=== PATIENT | female | born 1960 | race Caucasian/White ===

== ENCOUNTER 2019-09-22 13:12 | Day surgery (SDC) | payer MEDICAID ==
[~2019-09-22] VITALS: Ht 157.5 cm; Wt 42.5 kg
[~2019-09-22 13:12] MED LIST: CITA40TA5 PO; ESOM40CA PO
[2019-09-22 13:31] VITALS: BP 113/66
[2019-09-22] MEDS ORDERED: CHLORHEXIDINE 15 ML UDC MM ONE (14:00)
[2019-09-22] MEDS ORDERED: LACTATED RINGERS 1,000 ML IV SCH (14:05)
[2019-09-22] MEDS ORDERED: PROPOFOL 10 MG/ML, 20ML ONE (17:08)
[2019-09-22] MEDS ORDERED: ROCURONIUM 10 MG/ML,10ML ONE (17:08)
[2019-09-22] MEDS ORDERED: ONDANSETRON 2MG/ML, 2ML ONE (17:08)
[2019-09-22] MEDS ORDERED: SUCCINYLCHOLINE 20 MG/ML, 10ML ONE (17:08)
[2019-09-22] MEDS ORDERED: FENTANYL PF 100 MCG/2ML ONE (17:08)
[2019-09-22] MEDS ORDERED: DEXAMETHASONE 4 MG/ML, 1ML ONE ×2 (17:08→17:18)
[2019-09-22] MEDS ORDERED: LABETALOL 5MG/ML, 20ML IV PRN (18:00)
[2019-09-22] MEDS ORDERED: FENTANYL PF 100 MCG/2ML IV PRN (18:00)
[2019-09-22] MEDS ORDERED: PROMETHAZINE 12.5 MG SUPP PR PRN (18:00)
[2019-09-22] MEDS ORDERED: DIAZEPAM 5 MG/ML, 2ML IVPush PRN (18:00)
[2019-09-22] MEDS ORDERED: EPHEDRINE 50 MG/ML, 1ML IVPush PRN (18:00)
[2019-09-22] MEDS ORDERED: HALOPERIDOL 5 MG/ML IV PRN (18:00)
[2019-09-22] MEDS ORDERED: MIDAZOLAM 1 MG/ML, 2ML IV PRN (18:00)
[2019-09-22] MEDS ORDERED: hydrALAzine 20 MG/ML, 1ML IV PRN (18:00)
[2019-09-22] MEDS ORDERED: PROMETHAZINE 25 MG/ML, 1ML IV PRN (18:00)
[2019-09-22] MEDS ORDERED: ONDANSETRON 2MG/ML, 2ML IV PRN (18:00)
[2019-09-22] MEDS ORDERED: HYDROmorphone 2 MG/ML, 1ML IVPush PRN (18:00)
[2019-09-22] MEDS ORDERED: ONDANSETRON ODT 8 MG PO PRN (18:00)
[2019-09-22] MEDS ORDERED: OXYcodone 5 MG/5 ML ORAL.SOL UDC PO PRN (18:00)
[2019-09-22] MEDS ORDERED: MEPERIDINE/PF 25MG/ML,1ML IVPush PRN (18:00)
[2019-09-22] MEDS ORDERED: ALBUTEROL SULFATE 2.5 MG/3 ML NPPB PRN (18:00)
== END 2019-09-22 18:30 | disposition home or self-care (01) ==
LOC: OR 13:12
PROVIDERS: ATTEND Internal Medicine Gastroenterology
DX: R13.10 Dysphagia, unspecified (principal); K29.50 Unspecified chronic gastritis without bleeding; K21.9 Gastro-esophageal reflux disease without esophagitis; J44.9 Chronic obstructive pulmonary disease, unspecified; F32.9 Major depressive disorder, single episode, unspecified; E89.0 Postprocedural hypothyroidism; F12.10 Cannabis abuse, uncomplicated; F17.210 Nicotine dependence, cigarettes, uncomplicated; R63.4 Abnormal weight loss; Z68.1 Body mass index [BMI] 19.9 or less, adult; Z79.899 Other long term (current) drug therapy; Z85.850 Personal history of malignant neoplasm of thyroid; Z92.21 Personal history of antineoplastic chemotherapy; Z92.3 Personal history of irradiation
CPT/HCPCS: 43239; 43248; 88305; J0330; J1100; J2405; J2704; J3010